=== PATIENT | female | born 1940 | race Caucasian/White ===

== ENCOUNTER 2017-02-24 15:13 | Observation (INO) | payer MEDICARE, OTHER ==
[~2017-02-24] VITALS: Ht 172.7 cm; Wt 83.9 kg
[~2017-02-24 15:13] MED LIST: ALPR0.5T; AMLO10TA2; ASPI81CH43 PO; ATOR20TA50 PO; CLON0.2T; HYDR-2595; OLME20TA19; OMEPRAZOLE CAP 20MG; RANI-229; SERT25TA84
[2017-02-24 16:00] LABS: Basophils # (auto) 0 uL; Basophils % (auto) 0.3 % (0.0-2.0); CONDITION Y; Eosinophils # (auto) 0.1 uL; Eosinophils % (auto) 0.9 % (0.0-7.0); Hematocrit 39.2 % (36.0-46.0); Hemoglobin 13.2 g/dL (12.2-16.2); Lymphocytes # (auto) 5.3 uL; Lymphocytes % (auto) 42.4 % (10.0-50.0); Mean Corpuscular Hemoglobin 33.5 pg (28.0-32.0); Mean Corpuscular Hgb Conc. 33.8 g/dL (32.0-36.0); Mean Corpuscular Volume 99.4 fL (80.0-100.0); Mean Platelet Volume 9.1 fL (7.4-10.4); Monocytes # (auto) 0.7 uL; Neutrophils # (auto) 6.3 uL; Neutrophils % (auto) 50.4 % (37.0-80.0); Platelet Count (auto) 300 10^3/uL (140-450); Red Cell Distribution Width 14.3 % (11.6-16.0); White Blood Cell 12.5 10^3/uL (4.4-10.8)
[2017-02-24 16:02] LABS: Albumin 4.2 g/dL (3.4-5.0); Anion Gap 8 (5-15); Aspartate Aminotransferase 25 U/L (15-37); BUN/Creatinine Ratio 19.3; Blood Urea Nitrogen 21 mg/dL (7-18); Calcium 9.6 mg/dL (8.5-10.1); Carbon Dioxide 24 mmol/L (21-32); Chloride 107 mmol/L (98-107); GFR African American 63 mL/min; GFR Non-African American 52 mL/min; Glucose 145 mg/dL (74-106); Magnesium 2.4 mg/dL (1.6-2.6); Potassium 4.7 mmol/L (3.5-5.1); Sodium 139 mmol/L (136-145)
[2017-02-24 16:07] LABS: Alkaline Phosphatase 128 U/L (45-117); Bilirubin, Total 0.1 mg/dL (0.2-1.0); Total Protein 8.1 g/dL (6.4-8.2)
[2017-02-24] MEDS ORDERED: SODIUM CHLORIDE 0.9% 1,000 ML IVB ONE (17:36)
[2017-02-24] MEDS ORDERED: ASPirin-EC 81 mg tab PO ONE (18:00)
[2017-02-24] MEDS ORDERED: SODIUM CHLORIDE 0.9% 1,000 ML IV SCH (18:16)
[2017-02-24 18:25] VITALS: BP 100/75
[2017-02-24] MEDS ORDERED: LORazepam 0.5 MG TAB PO PRN (18:30)
[2017-02-24] MEDS ORDERED: HYDROcodone-ACET 5/325MG TAB PO PRN (18:30)
[2017-02-24] MEDS ORDERED: MORPHINE SULF INJ 2 MG/ML SYRINGE 1ML IV PRN ×2 (18:30)
[2017-02-24] MEDS ORDERED: NITROGLYCERIN 0.4 MG SL TAB SL PRN (18:30)
[2017-02-24] MEDS ORDERED: ACETAMINOPHEN 500 MG TAB PO PRN (18:30)
[2017-02-24] MEDS ORDERED: TEMAZEPAM 15 MG CAP PO PRN (18:30)
[2017-02-24] MEDS ORDERED: PROMETHAZINE HCL 25 MG/ML 1ML IV PRN (18:30)
[2017-02-24] MEDS ORDERED: LACTULOSE 20Gm/30ML SOLN PO PRN (18:30)
[2017-02-24] MEDS ORDERED: DEXTROSE (50%) 50ML SYRG IV PRN (18:30)
[2017-02-24 19:01] LABS: INR 0.94 (0.9-1.15); Partial Thromboplastin Time 25.7 sec (22.64-33.71); Prothrombin Time 10.2 sec (9.37-12.3)
[2017-02-24] MEDS ORDERED: ENOXAPARIN SOD 40 MG/0.4 ML SYRINGE SC SCH (20:00)
[2017-02-24] MEDS ORDERED: ATORVASTATIN 20 MG TAB PO SCH (22:00)
[2017-02-24] MEDS ORDERED: InsuLIN REG 1unit/0.01ml Soln (100units/ml) SC SCH (22:00)
[2017-02-24] MEDS ORDERED: ACCU-CHEK COMFORT CURVE STRIP VI SCH (22:00)
[2017-02-24] MEDS ORDERED: METOPROLOL TARTRATE 25 MG TAB PO SCH (22:00)
[2017-02-25] MEDS ORDERED: PANTOPRAZOLE 40 MG TAB PO SCH (10:00)
[2017-02-25] MEDS ORDERED: ASPirin 81 mg TAB PO SCH (10:00)
[2017-02-25] MEDS ORDERED: NITROGLYCERIN 0.2MG/HR TOPICAL PATCH TD SCH (10:00)
== END 2017-02-24 19:17 | disposition left against medical advice (07) | DRG 313 ==
LOC: ER 15:15 → OVERFLOW 17:37 → ER 19:17
PROVIDERS: ADMIT Family Medicine; ATTEND Family Medicine
DX: R07.2 Precordial pain (principal); I25.2 Old myocardial infarction; R45.851 Suicidal ideations; N18.3 Chronic kidney disease, stage 3 (moderate); I25.10 Atherosclerotic heart disease of native coronary artery without angina pectoris; F32.9 Major depressive disorder, single episode, unspecified; F41.9 Anxiety disorder, unspecified; I12.9 Hypertensive chronic kidney disease with stage 1 through stage 4 chronic kidney disease, or unspecified chronic kidney disease
CPT/HCPCS: 36415; 71020; 71101; 80053; 80320; 82550; 83036; 83735; 84484; 85025; 85379; 85610; 85652; 85730; 86141; 93005; 99285; G0378

== ENCOUNTER 2023-05-11 09:36 | Inpatient (IN) | payer MEDICARE, OTHER ==
[~2023-05-11] VITALS: Ht 172.7 cm; Wt 79.5 kg
[~2023-05-11 09:36] MED LIST changes: -AMLO10TA2; +AMLO1TAB23; -OLME20TA19; +OLME20TA53; -RANI-229; +RANI300T
[2023-05-11 09:55] VITALS: PULSE 112; RESP 20; O2SAT 96
[2023-05-11 10:31] LABS: Basophils # (auto) 0 10 ^3/uL (0-0.2); Eosinophils # (auto) 0.1 10 ^3/uL (0-0.8); Hemoglobin 13.8 g/dL (12.2-16.2); Lymphocytes # (auto) 3.3 10 ^3/uL (0.4-5.4); White Blood Cell 8.2 10^3/uL (4.4-10.8)
[2023-05-11 10:33] LABS: Basophils % (auto) 0.4 % (0.0-2.0); Eosinophils % (auto) 0.9 % (0.0-7.0); Hematocrit 42.5 % (36.0-46.0); Lymphocytes % (auto) 40.7 % (10.0-50.0); Mean Corpuscular Hemoglobin 33.4 pg (28.0-32.0); Mean Corpuscular Hgb Conc. 32.5 g/dL (32.0-36.0); Mean Corpuscular Volume 102.8 fL (80.0-100.0); Monocytes # (auto) 0.7 10 ^3/uL (0-1.3); Monocytes % (auto) 8.5 % (0.0-12.0); Neutrophils # (auto) 4.1 10 ^3/uL (1.6-8.6); Neutrophils % (auto) 49.5 % (37.0-80.0); Nucleated Red Blood Cells % 0.3 %; Red Blood Cells 4.13 10^6/uL (4.0-5.20); Red Cell Distribution Width 14.3 % (11.8-14.3)
[2023-05-11 10:51] LABS: Alanine Aminotransferase 20 U/L (7-40); Albumin 2.8 g/dL (3.2-4.8); Alkaline Phosphatase 48 U/L (46-116); Anion Gap 9 (5-15); Aspartate Aminotransferase 20 U/L (13-40); BUN/Creatinine Ratio 11.3 (10.0-20.0); Bilirubin, Total 0.2 mg/dL (0.2-1.0); Blood Urea Nitrogen 7 mg/dL (9-23); Calcium 6.3 mg/dL (8.5-10.1); Carbon Dioxide 17 mmol/L (20-30); Chloride 122 mmol/L (98-107); Glucose 98 mg/dL (74-106); Potassium 2.6 mmol/L (3.5-5.1); Sodium 148 mmol/L (136-145); Total Protein 4.5 g/dL (5.7-8.2)
[2023-05-11] MEDS ORDERED: dilTIAZem 25 MG/5 ML VIAL IV ONE (11:15)
[2023-05-11] MEDS ORDERED: dilTIAZem 125mg/125ml BAG KIT 125 ML IV ONE (11:15)
[2023-05-11 11:19] LABS: Urine Bacteria NONE SEEN /hpf (None Seen); Urine Blood Negative /uL (Negative); Urine Clarity HAZY (Clear); Urine Color Yellow (Yellow); Urine Hyaline Cast MOD /lpf (0 - 2); Urine Mucus FEW (None Seen); Urine Protein, UAD 1+ (Negative); Urine WBC 22 /hpf (0 - 5); Urine pH 5.5 (5.0-8.0)
[2023-05-11] MEDS ORDERED: NITROGLYCERIN 0.4 MG SL TAB SL PRN (14:00)
[2023-05-11] MEDS ORDERED: MORPHINE SULFATE INJ 2 MG/ml SYRG IV PRN (14:00)
[2023-05-11] MEDS ORDERED: POTASSIUM EFFERVESENT TAB 25 MEQ PO ONE (14:00)
[2023-05-11] MEDS ORDERED: ONDANSETRON HCL 4 MG/2 ML VIAL IV PRN (14:00)
[2023-05-11] MEDS: MAGNESIUM SULFATE 1GM/100ML 100 ML IV SCH ×2 (14:44→16:23)
[2023-05-11] MEDS: cefTRIAXone 1GM/50ML D5W 50 ML IV ONE ×2 (14:45→15:57)
[2023-05-11] MEDS: SODIUM CHLORIDE 0.9% 1,000 ML IV SCH (14:47)
[2023-05-11] MEDS ORDERED: ALPRAZolam 0.25 MG TAB PO PRN (17:30)
[2023-05-11] MEDS ORDERED: SERTRALINE HCL 50 MG TAB PO ONE (17:30)
[2023-05-11] MEDS: HYDROcodone-ACET 5/325MG TAB PO PRN ×2 (18:26→23:51)
[2023-05-11 18:55] LABS: Rapid Influenza A Negative (Negative); Rapid Influenza B Negative (Negative)
[2023-05-11 20:00] VITALS: PULSE 78; PULSE 98; RESP 24; O2SAT 92
[2023-05-11 21:29] LABS: Anion Gap 9 (5-15); Calcium 9.5 mg/dL (8.7-10.4); Carbon Dioxide 25 mmol/L (20-30); Chloride 107 mmol/L (98-107); Potassium 4.5 mmol/L (3.5-5.1); Sodium 141 mmol/L (136-145)
[2023-05-11 21:35] LABS: Blood Urea Nitrogen 12 mg/dL (9-23); Glucose 110 mg/dL (74-106); Magnesium 2.3 mg/dL (1.6-2.6)
[2023-05-11] MEDS ORDERED: SENNA 8.6 MG TAB PO SCH (22:00)
[2023-05-11 23:35] VITALS: BP 155/65; PULSE 83; RESP 18; TEMP 98.3; O2SAT 98
[2023-05-11] MEDS: MAGNESIUM OXIDE 400 MG TAB PO SCH (23:48)
[2023-05-11] MEDS: cloNIDine HCL 0.1 MG TAB PO SCH (23:48)
[2023-05-11] MEDS: METOPROLOL TARTRATE 25 MG TAB PO SCH (23:49)
[2023-05-12 00:50] VITALS: BP 133/62; PULSE 66; RESP 18; TEMP 97.7; O2SAT 97
[2023-05-12 01:19] VITALS: PULSE 85; RESP 18
[2023-05-12] MEDS: SODIUM CHLORIDE 0.9% 1,000 ML IV SCH (03:20)
[2023-05-12 05:22] VITALS: BP 107/59; PULSE 64; RESP 16; TEMP 98.1; O2SAT 96
[2023-05-12 07:28] LABS: Calcium 9.1 mg/dL (8.5-10.1); Chloride 108 mmol/L (98-107); Potassium 4.6 mmol/L (3.5-5.1); Sodium 140 mmol/L (136-145)
[2023-05-12 07:29] LABS: Anion Gap 6 (5-15); Carbon Dioxide 26 mmol/L (20-30)
[2023-05-12 07:34] LABS: Blood Urea Nitrogen 11 mg/dL (9-23); Glucose 117 mg/dL (74-106)
[2023-05-12 07:41] LABS: Basophils # (auto) 0 10 ^3/uL (0-0.2); Basophils % (auto) 0.5 % (0.0-2.0); Eosinophils # (auto) 0.2 10 ^3/uL (0-0.8); Eosinophils % (auto) 1.7 % (0.0-7.0); Hematocrit 42.2 % (36.0-46.0); Hemoglobin 13.9 g/dL (12.2-16.2); Lymphocytes # (auto) 3.9 10 ^3/uL (0.4-5.4); Lymphocytes % (auto) 41.2 % (10.0-50.0); Mean Corpuscular Hgb Conc. 32.9 g/dL (32.0-36.0); Mean Corpuscular Volume 100.3 fL (80.0-100.0); Monocytes # (auto) 0.7 10 ^3/uL (0-1.3); Monocytes % (auto) 7.6 % (0.0-12.0); Neutrophils # (auto) 4.6 10 ^3/uL (1.6-8.6); Nucleated Red Blood Cells % 0.1 %; Red Blood Cells 4.21 10^6/uL (4.0-5.20); White Blood Cell 9.4 10^3/uL (4.4-10.8)
[2023-05-12 07:43] LABS: INR 1.05 (0.9-1.15); Partial Thromboplastin Time 26.1 SEC (24.5-34.5)
[2023-05-12 08:45] VITALS: BP 134/59; PULSE 65; RESP 18; TEMP 98.4; O2SAT 97
[2023-05-12] MEDS ORDERED: cefTRIAXone 1GM/50ML D5W 50 ML IV SCH (09:00)
[2023-05-12] MEDS ORDERED: ADENOSINE 67 MG in GIVE UN-DILUTED 0 ML IV ONE (09:15)
[2023-05-12] MEDS ORDERED: SERTRALINE HCL 50 MG TAB PO SCH (10:00)
[2023-05-12] MEDS ORDERED: ENOXAPARIN SOD 40 MG/0.4 ML SYRINGE SC SCH (10:00)
[2023-05-12] MEDS ORDERED: ASPirin-EC 81 mg tab PO SCH (10:00)
[2023-05-12] MEDS ORDERED: FAMOTIDINE 20 MG TAB PO SCH (10:00)
[2023-05-12 13:06] VITALS: BP 150/67; PULSE 70; RESP 16; TEMP 98.5; O2SAT 93
[2023-05-12] MEDS: METOPROLOL TARTRATE 25 MG TAB PO SCH (13:29)
[2023-05-12] MEDS: MAGNESIUM OXIDE 400 MG TAB PO SCH (13:30)
[2023-05-12] MEDS: cloNIDine HCL 0.1 MG TAB PO SCH (13:31)
[2023-05-12] MEDS ORDERED: CEFD300C2 PO ×3 (13:58→18:23)
[2023-05-12] MEDS ORDERED: OLME40TA78 PO ×3 (13:58→18:23)
[2023-05-12] MEDS ORDERED: METO25TA36 PO ×3 (13:58→18:23)
[2023-05-12 16:51] VITALS: BP 134/59; PULSE 65; TEMP 36.9
== END 2023-05-12 18:05 | disposition home or self-care (01) | DRG 309 ==
LOC: ER 09:36 → EDBD 09:36 → TELE 14:05 → TELE-WESTW 22:37
PROVIDERS: ADMIT Hospitalist; ATTEND Hospitalist
DX: I48.91 Unspecified atrial fibrillation (principal); N39.0 Urinary tract infection, site not specified; F32.A Depression, unspecified; F41.9 Anxiety disorder, unspecified; G89.4 Chronic pain syndrome; I10 Essential (primary) hypertension; I25.10 Atherosclerotic heart disease of native coronary artery without angina pectoris; R07.89 Other chest pain; E87.8 Other disorders of electrolyte and fluid balance, not elsewhere classified; R00.0 Tachycardia, unspecified; R55 Syncope and collapse; I25.2 Old myocardial infarction
CPT/HCPCS: 36415; 71045; 78452; 80048; 80053; 81001; 83605; 83735; 84484; 85025; 85610; 85730; 87040; 87077; 87086; 87186; 87804; 93005; 93017; 93306; 97163; 99291; G0378; J0153; J0696; J2405

== ENCOUNTER 2023-05-16 10:36 | Emergency (ER) | payer OTHER ==
[~2023-05-16] VITALS: Ht 172.7 cm; Wt 81.9 kg
[~2023-05-16 10:36] MED LIST changes: -AMLO1TAB23; +CEFD300C2 PO; -CLON0.2T; +METO25TA36 PO; -OLME20TA53; +OLME40TA78 PO; -RANI300T
[2023-05-16] MEDS ORDERED: VANC250PO PO (11:37)
[2023-05-16 12:13] VITALS: BP 140/98; PULSE 88; RESP 17; TEMP 98.1; O2SAT 98
== END 2023-05-16 12:15 | disposition home or self-care (01) ==
LOC: ER 10:36
DX: R78.81 Bacteremia (principal); I25.2 Old myocardial infarction; F12.10 Cannabis abuse, uncomplicated

== ENCOUNTER 2023-10-25 10:24 | Inpatient (IN) | payer OTHER ==
[~2023-10-25] VITALS: Ht 172.7 cm; Wt 95.0 kg
[~2023-10-25 10:24] MED LIST changes: +VANC250PO PO
[2023-10-25 11:25] LABS: Basophils # (auto) 0.1 10 ^3/uL (0-0.2); Basophils % (auto) 0.6 % (0.0-2.0); Eosinophils # (auto) 0 10 ^3/uL (0-0.8); Eosinophils % (auto) 0.3 % (0.0-7.0); Hematocrit 47.8 % (36.0-46.0); Lymphocytes # (auto) 3.5 10 ^3/uL (0.4-5.4); Lymphocytes % (auto) 25.6 % (10.0-50.0); Mean Corpuscular Hemoglobin 33.2 pg (28.0-32.0); Mean Corpuscular Hgb Conc. 33.4 g/dL (32.0-36.0); Mean Corpuscular Volume 99.6 fL (80.0-100.0); Monocytes # (auto) 1.1 10 ^3/uL (0-1.3); Monocytes % (auto) 8.4 % (0.0-12.0); Neutrophils # (auto) 8.8 10 ^3/uL (1.6-8.6); Neutrophils % (auto) 65.1 % (37.0-80.0); Red Cell Distribution Width 13.3 % (11.8-14.3); White Blood Cell 13.6 10^3/uL (4.4-10.8)
[2023-10-25 11:38] LABS: Alkaline Phosphatase 96 U/L (46-116); Calcium 10.6 mg/dL (8.5-10.1); Carbon Dioxide 23 mmol/L (20-30); Chloride 105 mmol/L (98-107); Glucose 150 mg/dL (74-106); Potassium 4.3 mmol/L (3.5-5.1); Sodium 137 mmol/L (136-145)
[2023-10-25 11:39] LABS: Albumin 5.1 g/dL (3.2-4.8); Anion Gap 9 (5-15); Aspartate Aminotransferase 20 U/L (13-40); BUN/Creatinine Ratio 10.8 (10.0-20.0); Bilirubin, Total 0.7 mg/dL (0.2-1.0); Blood Urea Nitrogen 10 mg/dL (9-23); Total Protein 8.5 g/dL (5.7-8.2)
[2023-10-25 11:49] LABS: Alanine Aminotransferase < 9 U/L (7-40)
[2023-10-25 15:23] VITALS: PULSE 129; RESP 19; O2SAT 96
[2023-10-25] MEDS ORDERED: ONDANSETRON HCL 4 MG/2 ML VIAL IV PRN (16:15)
[2023-10-25 17:21] LABS: Urine Bacteria None Seen /hpf (None Seen)
[2023-10-25] MEDS: SODIUM CHLORIDE 0.9% 500 ML IV ONE (17:22)
[2023-10-25] MEDS: dilTIAZem 25 MG/5 ML VIAL IV ONE (17:22)
[2023-10-25] MEDS: HYDROcodone-ACET 5/325MG TAB PO PRN (17:23)
[2023-10-25 17:24] LABS: Urine Blood Negative /uL (Negative); Urine Clarity Clear (Clear); Urine Color Yellow (Yellow); Urine Hyaline Cast FEW /lpf (0 - 2); Urine Mucus FEW (None Seen); Urine Protein, UAD 2+ (Negative); Urine Specific Gravity 1.022 (1.001-1.035); Urine Urobilinogen Normal (Negative); Urine WBC 4 /hpf (0 - 5)
[2023-10-25] MEDS: cefTRIAXone 1GM/50ML D5W 50 ML IV ONE (17:24)
[2023-10-25] MEDS: dilTIAZem 125mg/125ml BAG KIT 125 ML IV SCH (17:31)
[2023-10-25] MEDS: SODIUM CHLORIDE 0.9% 1,000 ML IV SCH (17:31)
[2023-10-25 17:37] LABS: Amphetamine Screen, Urine Neg (NEGATIVE); Barbiturate Scree,Urine Neg (NEGATIVE); Benzodiazephine Screen, Urine Pos (NEGATIVE); Cocaine Screen, Urine Neg (NEGATIVE); Opiate Scree,Urine Neg (NEGATIVE); Phencyclidine Screen, Urine Neg (NEGATIVE)
[2023-10-25 17:38] LABS: Cannabinoid Screen, Urine Pos (NEGATIVE)
[2023-10-25 19:30] VITALS: PULSE 81; RESP 12; O2SAT 97
[2023-10-25] MEDS: ATORVASTATIN 20 MG TAB PO SCH (21:40)
[2023-10-25] MEDS: ALPRAZolam 0.5 MG TAB PO SCH (21:40)
[2023-10-25] MEDS: METOPROLOL TARTRATE 25 MG TAB PO SCH (21:40)
[2023-10-26] VITALS (10 sets, daily range): BP systolic 145–170; BP diastolic 80–104; PULSE 75–105; RESP 18–20; TEMP 97.7–98.6; O2SAT 96–98
[2023-10-26 07:25] LABS: Basophils # (auto) 0.1 10 ^3/uL (0-0.2); Basophils % (auto) 0.7 % (0.0-2.0); Eosinophils # (auto) 0.2 10 ^3/uL (0-0.8); Eosinophils % (auto) 1.3 % (0.0-7.0); Hematocrit 46.1 % (36.0-46.0); Hemoglobin 15.2 g/dL (12.2-16.2); Lymphocytes # (auto) 5.7 10 ^3/uL (0.4-5.4); Lymphocytes % (auto) 46.4 % (10.0-50.0); Mean Corpuscular Hemoglobin 33.5 pg (28.0-32.0); Mean Corpuscular Hgb Conc. 32.8 g/dL (32.0-36.0); Mean Corpuscular Volume 101.9 fL (80.0-100.0); Monocytes # (auto) 1.1 10 ^3/uL (0-1.3); Monocytes % (auto) 8.9 % (0.0-12.0); Neutrophils # (auto) 5.3 10 ^3/uL (1.6-8.6); Neutrophils % (auto) 42.7 % (37.0-80.0); Nucleated Red Blood Cells % 0.1 %; Red Blood Cells 4.53 10^6/uL (4.0-5.20); Red Cell Distribution Width 13.5 % (11.8-14.3); White Blood Cell 12.4 10^3/uL (4.4-10.8)
[2023-10-26 07:26] LABS: Anion Gap 8 (5-15); Carbon Dioxide 18 mmol/L (20-30); Chloride 108 mmol/L (98-107); Potassium 3.9 mmol/L (3.5-5.1); Sodium 134 mmol/L (136-145)
[2023-10-26 07:27] LABS: Calcium 10.4 mg/dL (8.7-10.4)
[2023-10-26 07:32] LABS: BUN/Creatinine Ratio 7.9 (10.0-20.0); Blood Urea Nitrogen 7 mg/dL (9-23); Glucose 144 mg/dL (74-106)
[2023-10-26] MEDS: cefTRIAXone 1GM/50ML D5W 50 ML IV SCH (09:25)
[2023-10-26] MEDS: ASPirin 81 mg TAB PO SCH (09:26)
[2023-10-26] MEDS: OLMESARTAN MEDOXOMIL 40 MG PO SCH (10:00)
[2023-10-26] MEDS: SERTRALINE HCL 50 MG TAB PO SCH (12:54)
[2023-10-26] MEDS: OMEPRAZOLE-SOD BICARB 20 MG POWDER PO SCH (12:54)
[2023-10-26] MEDS: METOPROLOL TARTRATE 50 MG TAB PO SCH (14:41)
[2023-10-26] MEDS: LOSARTAN POTASSIUM 50 MG TAB PO SCH (16:37)
[2023-10-26] MEDS: cloNIDine HCL 0.1 MG TAB PO PRN (20:48)
[2023-10-26] MEDS: APIXABAN 5 MG TAB PO SCH (21:03)
[2023-10-27] VITALS (7 sets, daily range): BP systolic 120–146; BP diastolic 73–99; PULSE 76–115; RESP 16–20; TEMP 97.6–98.6; O2SAT 94–100
[2023-10-27] MEDS: NITROGLYCERIN 0.4 MG SL TAB SL PRN (04:39)
[2023-10-27] MEDS: MORPHINE SULFATE INJ 2 MG/ml SYRG IV PRN (06:11)
[2023-10-27] MEDS: PANTOPRAZOLE 40 MG TAB PO SCH (08:41)
[2023-10-27] MEDS ORDERED: MET50T PO (14:46)
[2023-10-27] MEDS ORDERED: APIX2.5T PO (14:47)
== END 2023-10-27 16:15 | disposition home health service (06) | DRG 309 ==
LOC: ER 10:24 → TELE 16:05 → TELE-WESTW 23:32
PROVIDERS: ADMIT Hospitalist; ATTEND Hospitalist
DX: I48.20 Chronic atrial fibrillation, unspecified (principal); F19.139 Other psychoactive substance abuse with withdrawal, unspecified; I10 Essential (primary) hypertension; I25.10 Atherosclerotic heart disease of native coronary artery without angina pectoris; F32.A Depression, unspecified; F41.9 Anxiety disorder, unspecified; Z87.891 Personal history of nicotine dependence; Z79.899 Other long term (current) drug therapy
CPT/HCPCS: 36415; 70450; 80048; 80053; 80307; 81001; 82962; 84484; 85025; 87040; 93005; 96365; 96375; 97110; 97163; G0378